=== PATIENT | female | born 1975 | race Hispanic/Latino ===

== ENCOUNTER 2017-05-03 22:04 | Emergency (ER) | payer MEDICAID ==
[2017-05-03 22:04] VITALS: BMI 40.8
[2017-05-03 22:29] VITALS: TEMP 98
--- NOTE | 2017-05-03 23:15 | ED PDOC ---
Arrival/HPI - General Historian: Patient <Hieu Oconnellew - Last Filed: 05/04/17 01:44> - History of Present Illness Symptom Onset: Sudden Activities at Onset: Light Context: Street <Jeet Bourne - Last Filed: 05/04/17 02:06> - General Chief Complaint: Trauma Time Seen by Provider: 05/03/17 22:42 - History of Present Illness Narrative History of Present Illness (Text): 05/03/17 23:12 41 yo F with known hx of sciatica presents with minor face trauma. Pt states that she was walking when her right leg gave out, which is common for her, and she fell forward hitting her nose on a parking meter. She reports pain over the bridge of her nose and she states that her nose is bleeding on the inside as well as on outside. She had no LOC. Denies any current headache, visual changes , numbness, tingling, focal weakness. PMD: Michela (Jonathon Oconnell) Past Medical History - Provider Review Nursing Documentation Reviewed: Yes - Infectious Disease Hx of Infectious Diseases: None - Tetanus Immunization Tetanus Immunization: Unknown - Cardiac Hx Hypertension: Yes - Pulmonary Hx Asthma: Yes Hx Bronchitis: Yes - Neurological Hx Neurological Disorder: No - HEENT Hx HEENT Disorder: No - Renal Hx Renal Disorder: No - Endocrine/Metabolic Hx Endocrine Disorders: No Other/Comment: boarderline DM - Hematological/Oncological Hx Blood Disorders: No - Integumentary Hx Dermatological Disorder: No - Musculoskeletal/Rheumatological Hx Musculoskeletal Disorders: Yes Hx Falls: Yes Hx Fractures: Yes (ankle fracture) - Gastrointestinal Hx Gastrointestinal Disorders: No - Genitourinary/Gynecological Hx Genitourinary Disorders: No - Psychiatric Hx Emotional Abuse: No Hx Physical Abuse: No Hx Substance Use: No - Surgical History Hx Section: Yes (x3) - Anesthesia Hx Anesthesia: Yes Hx Anesthesia Reactions: No Hx Malignant Hyperthermia: No - Suicidal Assessment Feels Threatened In Home Enviroment: No <Jonathon Oconnell - Last Filed: 05/04/17 01:44> Family/Social History - Physician Review Nursing Documentation Reviewed: Yes Family/Social History: No Known Family HX Smoking Status: Heavy Smoker > 10 Cigarettes Daily Hx Alcohol Use: No Hx Substance Use: No <Jonathon Oconnell - Last Filed: 05/04/17 01:44> Allergies/Home Meds <Jonathon Oconnell - Last Filed: 05/04/17 01:44> <Jeet Bourne - Last Filed: 05/04/17 02:06> Allergies/Adverse Reactions: Allergies acetaminophen Allergy (Verified 12/22/16 18:40) RASH iodine Allergy (Verified 12/22/16 18:40) RASH oxycodone HCl [From Percocet] Allergy (Verified 12/22/16 18:40) RASH sea Allergy (Severe, Uncoded 12/22/16 18:40) RASH Review of Systems - Physician Review All systems were reviewed & negative as marked: Yes - Review of Systems Constitutional: Normal Eyes: Normal. absent: Vision Changes, Photophobia, Eye Pain ENT: Epistaxis. absent: Hearing Changes Respiratory: Normal. absent: SOB, Cough Cardiovascular: Normal. absent: Chest Pain, Palpitations Gastrointestinal: Normal. absent: Abdominal Pain, Nausea, Vomiting Genitourinary Female: Normal Musculoskeletal: Normal. absent: Arthralgias Skin: Laceration (bridge of nose). absent: Rash, Pruritis Neurological: Normal. absent: Headache, Dizziness Endocrine: Normal Hemo/Lymphatic: Normal Psychiatric: Normal <Jonathon Oconnell - Last Filed: 05/04/17 01:44> Physical Exam Vital Signs Reviewed: Yes Temperature: Afebrile Blood Pressure: Normal Pulse: Regular Respiratory Rate: Normal Appearance: Positive for: Uncomfortable Pain Distress: Mild Mental Status: Positive for: Alert and Oriented X 3 - Systems Exam Head: Present: Atraumatic, Normocephalic Pupils: Present: PERRL Extroacular Muscles: Present: EOMI Nose (Internal): Present: Epistaxis, Other (.5 cm laceration to bridge of nose) Respiratory/Chest: No: Respiratory Distress, Accessory Muscle Use Cardiovascular: Present: Normal S1, S2 Upper Extremity: Present: NORMAL PULSES Lower Extremity: Present: NORMAL PULSES Neurological: Present: Speech Normal, Motor Func Grossly Intact Skin: Present: Warm, Dry Psychiatric: Present: Alert, Oriented x 3 <Jonathon Oconnell - Last Filed: 05/04/17 01:44> - Systems Exam Nose (Internal): Present: Other <Jeet Bourne - Last Filed: 05/04/17 02:06> Vital Signs Temp Pulse Resp BP Pulse Ox 05/04/17 01:51 70 12 115/65 98 05/03/17 22:24 98.0 F 85 16 112/63 96 Medical Decision Making <Jonathon Oconnell - Last Filed: 05/04/17 01:44> - RAD Interpretation Gift Officer: Radiologist <Jeet Bourne - Last Filed: 05/04/17 02:06> ED Course and Treatment: 05/03/17 23:19 41 yo F with hx of sciatica that presents s/p minor face trauma Plan: - CT maxillofacial - Tylenol - Reassess and disposition 05/04/17 01:21 CT results FINDINGS: Bones/joints: There is a left nasal bone fracture. There are degenerative changes in the visualized cervical spine Dental: There are dental caries. There are large erosions in the maxilla bilaterally. Soft tissues: There is soft tissue swelling over the nose greatest on the left. There is mild edema in the anterior nasal cavity. Lymph nodes: There is shotty submandibular adenopathy. Orbits: Orbital contents are unremarkable. 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 There is a very small left frontal sinus osteoma. There is mucoperiosteal thickening in the ethmoids. There is mucoperiosteal thickening in both maxillary sinuses right greater than left. Middle ears and mastoids: Visualized portions of the middle ears and mastoids are unremarkable Brain: No focal abnormalities are seen in visualized portion of the brain. Nasopharynx: There is mild prominence of tonsils and adenoids. Oropharynx: There is streak artifact from a tongue ring. IMPRESSION: Nasal bone fracture; dental disease Additional findings as described above. 05/04/17 01:22 Pt given ibuprofen as pt is allergic to tylenol Will repair laceration with skin glue and steri strips 05/04/17 01:44 Laceration repaired with no complications. Will discharge home with referral for ENT and abx. Pt understands and is comfortable with discharge and follow up. Discharge instructions/precautions given. (Jonathon Oconnell) 05/04/17 01:08 Patient seen and evaluated with resident. Agree with HPI, clinical findings, plan and treatment. Patient is a 41 year old female who presents to the emergency department complaining of laceration to bridge of nose s/p mechanical fall. States her right leg "gave out" and hit her nose on parking meter. Laceration repaired with steri strips. Patient is stable for discharge. Advised to present to emergency department for new/worsening symptoms and follow up with ENT/PMD within few days. (Jeet Bourne) - RAD Interpretation Radiology Orders: 05/03/17 23:07 MAXILLOFACIAL W/O CONTRAST [CT] Stat - Medication Orders Current Medication Orders: Discontinued Medications Acetaminophen (Tylenol 325mg Tab) 650 mg PO STAT STA Stop: 05/03/17 23:08 Last Admin: 05/04/17 00:13 Dose: Not Given Non-Admin Reason: Allergy Ibuprofen (Motrin Tab) 600 mg PO STAT STA Stop: 05/03/17 23:37 Last Admin: 05/04/17 00:14 Dose: 600 mg Procedure: Wound Repair - Time Performed Time Performed: 01:46 - Consent Obtained Consent obtained: Verbal - Performed by Performed by: Mid-level Provider - Indications Indication(s):: Laceration - Location Location:: Nose Shape:: Linear Dimensions Length cm: 1 Depth:: Epidermis - Anesthetic Technique Anesthetic Technique: Oral pain medication - Debris Debris:: None - Wound repair method [place]:: Tissue glue, Steri-strips - Patient tolerated procedure Patient Tolerated Procedure:: Well <Jonathon Oconnell - Last Filed: 05/04/17 01:44> <Jonathon Oconnell - Last Filed: 05/04/17 01:44> - PA / SALES EXPERT / Resident Statement SEBASTIAN has reviewed & agrees with the documentation as recorded. SEBASTIAN has examined the patient and agrees with the treatment plan. <Jeet Bourne - Last Filed: 05/04/17 02:06> - Scribe Statement Ugo Myles Provider Scribe Attestation: All medical record entries made by the Scribe were at my direction and personally dictated by me. I have reviewed the chart and agree that the record accurately reflects my personal performance of the history, physical exam, medical decision making, and the department course for this patient. I have also personally directed, reviewed, and agree with the discharge instructions and disposition. (Jeet Bourne) Disposition/Present on Arrival - Present on Arrival Any Indicators Present on Arrival: No History of DVT/PE: No History of Uncontrolled Diabetes: No Urinary Catheter: No History of Decub. Ulcer: No History Surgical Site Infection Following: None - Disposition Have Diagnosis and Disposition been Completed?: Yes Disposition Time: 01:45 Patient Plan: Discharge <Jonathon Oconnell - Last Filed: 05/04/17 01:44> <Jeet Bourne - Last Filed: 05/04/17 02:06> - Disposition Diagnosis: Nasal bone fracture Disposition: HOME/ ROUTINE Condition: IMPROVED Discharge Instructions (ExitCare): Nasal Fracture (ED), Skin Adhesive Care (ED) Additional Instructions: You were evaluated for minor facial trauma. You were found to have a laceration to the bridge of your nose and a nasal bone fracture. Take Ibuprofen for any pain. Follow up with ENT within the next week. Take antibiotics as prescribed. Please return to the ED with any new or worsening symptoms. Prescriptions: Amoxicillin 875 mg PO BID #14 tablet Referrals: Oscar Abernathy MD [Primary Care Provider] - Follow up with primary Niranjan Taylor DO [[facility]] - Follow up with primary
--- NOTE | 2017-05-04 01:10 | CT ---
EXAM: CT Maxillofacial Without Intravenous Contrast CLINICAL HISTORY: 41 years old, female; Injury or trauma; Fall; Initial encounter; Laceration; Nose; Without residual foreign body; Additional info: Minor trauma TECHNIQUE: Axial computed tomography images of the face without intravenous contrast. This CT exam was performed using one or more of the following dose reduction techniques: automated exposure control, adjustment of the mA and/or kV according to patient size, and/or use of iterative reconstruction technique. Coronal and sagittal reformatted images were created and reviewed. EXAM DATE/TIME: 05/03/2017 11:07 PM COMPARISON: There are no prior studies for comparison. FINDINGS: Bones/joints: There is a left nasal bone fracture. There are degenerative changes in the visualized cervical spine Dental: There are dental caries. There are large erosions in the maxilla bilaterally. Soft tissues: There is soft tissue swelling over the nose greatest on the left. There is mild edema in the anterior nasal cavity. Lymph nodes: There is shotty submandibular adenopathy. Orbits: Orbital contents are unremarkable. 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 There is a very small left frontal sinus osteoma. There is mucoperiosteal thickening in the ethmoids. There is mucoperiosteal thickening in both maxillary sinuses right greater than left. Middle ears and mastoids: Visualized portions of the middle ears and mastoids are unremarkable Brain: No focal abnormalities are seen in visualized portion of the brain. Nasopharynx: There is mild prominence of tonsils and adenoids. Oropharynx: There is streak artifact from a tongue ring. IMPRESSION: Nasal bone fracture; dental disease Additional findings as described above.
[2017-05-04 01:52] VITALS: BP 115/65; PULSE 70; RESP 12; O2SAT 98
== END 2017-05-04 01:53 | disposition home or self-care (01) ==
LOC: ED 22:04
DX: S02.2XXA Fracture of nasal bones, initial encounter for closed fracture (principal); W18.30XA Fall on same level, unspecified, initial encounter; Y93.01 Activity, walking, marching and hiking; I10 Essential (primary) hypertension; F17.210 Nicotine dependence, cigarettes, uncomplicated